=== PATIENT | male | born 1945 | race Hispanic/Latino ===

== ENCOUNTER 2024-11-15 08:14 | Emergency (ER) | payer MEDICARE, BC, SELFPAY ==
[2024-11-15 08:15] VITALS: BP 205/97; PULSE 75; RESP 16; TEMP 36.1; O2SAT 99; BMI 28.0
--- NOTE | 2024-11-15 08:38 | EX.ED.GUMALE ---
HPI History of Present Illness Chief Complaint: Complaint Narrative Narrative: Patient is a 79-year-old male presenting to the emergency department for lower abdominal pain, dysuria and urinary frequency. Patient has a past medical history of bladder cancer in remission for the past 3 years, HTN and diverticulitis. He sees Dr. Ocasio. States that on Sunday he started to have burning with urination and some lower abdominal discomfort. States that he saw his primary care doctor who reportedly tested his urine and told him he did not have a urinary tract infection. States his symptoms improved that evening. He then again had symptoms on and this morning. He denies fever, chills, nausea, vomiting, chest pain, shortness of breath. Denies any constipation or diarrhea. Denies any hematuria. Denies any scrotal swelling or pain. No penial discharge or pain. No concern for STDs. [facility] Medical History Hypertension Bladder cancer Diverticulitis Allergy/AdvReac Type Severity Reaction Status Date / Time No Known Allergies Allergy Verified 11/15/24 08:15 Social History Smoking Status: Former smoker EXAM Physical Exam Narrative Exam Narrative: Vital signs: Reviewed General: Alert and orientedx3. No acute distress HEENT: Head is normocephalic and atraumatic, sinuses nontender, pupils equal round and reactive. Nares are patent. Oropharynx and throat exams normal. Neck: Supple without lymphadenopathy nontender Cardiovascular: Regular rate and rhythm, no murmurs. No rubs or gallops. Normal S1 and S2 Respiratory: Clear to auscultation bilaterally. No wheezes, rales, rhonchi Abdominal: Soft and mildly tender to palpation in the right lower quadrant, suprapubic and left lower quadrants. Normal bowel sounds. No guarding or rebound. Extremities: No tenderness. No bruising. Normal range of motion. Normal sensation. Skin: No rash or redness. Neurological: Cranial nerves II through XII are grossly intact. Normal strength and sensation. Normal cerebellar function The rest of the physical exam is unremarkable Const Vital Signs: 11/15/24 08:15 11/15/24 09:45 11/15/24 10:17 Temperature 97 F L 97 F L Temperature Source Temporal Pulse Rate 75 58 L 58 L Respiratory Rate 16 14 14 Blood Pressure 205/97 H 149/57 H 149/57 H Blood Pressure Mean 133 87 87 Pulse Ox 99 98 98 Oxygen Delivery Method Room Air Room Air MDM MDM MDM Narrative Medical decision making narrative: Patient is a 79-year-old male presenting to the emergency department for lower abdominal pain, dysuria and urinary frequency. Patient was seen and examined. Patient arrives hypertensive at 205/97. All other vitals are normal and stable. Patient states that he did take his blood pressure medications this morning as prescribed. He states that his blood pressure does run high and when he comes to the hospital his blood pressure goes up. Differential includes but is not limited to: Diverticulitis, colitis, UTI, less likely appendicitis Given the patient's lower abdominal pain in all quadrants and history of diverticulitis will obtain a CT of the abdomen and pelvis. Also obtain labs and urinalysis. CBC with no leukocytosis and a normal hemoglobin. CMP with no significant abnormalities. Urinalysis with no evidence of urinary tract infection. CT shows no obvious acute process in the abdomen or pelvis. Radiopaque density in small-bowel is presumably medication related. Postsurgical changes as described above. Patient was updated on the negative labs and imaging. I recommended that he follow-up with his urologist as soon as possible and if he develops any new or worsening symptoms he should return to the emergency department. Patient discharged from the Emergency Department. I do not feel that the patient's evaluation reveals any acute reason for admission at this time. I instructed them to either follow-up with their primary care physician or promptly return to the Emergency Department for reevaluation should symptoms worsen or new symptoms develop. I explained what symptoms would indicate the need to return to the emergency department. Shared decision making was used. The patient voiced understanding of the treatment plan and is agreeable with it. Clinical impression Abdominal pain Dysuria Urinary frequency History & Record Review Discussion w/independent historian: Patient Lab Data Attestation: I reviewed the patient's lab results. Labs: Laboratory Results - last 24 hr 11/15/24 11/15/24 08:20 08:45 WBC 5.2 RBC 4.26 L Hgb 13.8 Hct 39.1 L MCV 91.8 MCH 32.4 H MCHC 35.3 RDW Std Deviation 42.2 RDW Coeff of Jessy 12.7 Plt Count 183 MPV 10.5 Immature Gran % (Auto) 0.800 Neut % (Auto) 46.8 L Lymph % (Auto) 35.6 Tyrrell % (Auto) 13.3 H Eos % (Auto) 2.7 Baso % (Auto) 0.8 Absolute Neuts (auto) 2.4 Absolute Lymphs (auto) 1.85 Nucleated RBC % 0 Sodium 138 Potassium 3.4 Chloride 100 Carbon Dioxide 28.5 Anion Gap 10 BUN 14 Creatinine 1.01 Estim Creat Clear Calc 58.50 Est GFR (MDRD) Non-Af 76 BUN/Creatinine Ratio 14.2 Glucose 109 H Calcium 9.3 Total Bilirubin 1.16 AST 19 ALT 13 Alkaline Phosphatase 60 Total Protein 7.1 Albumin 4.4 Globulin 2.8 Albumin/Globulin Ratio 1.6 Urine Color Straw Urine Clarity Clear Urine pH 7.0 Ur Specific Empire 1.005 Urine Protein Negative Urine Glucose (UA) Normal Urine Ketones Negative Urine Occult Blood Negative Urine Nitrite Negative Urine Bilirubin Negative Urine Urobilinogen Normal Ur Leukocyte Esterase Negative Urine RBC 0 SEEN Urine WBC 0 SEEN Ur Squamous Epith Cells 0 SEEN Urine Bacteria 0 SEEN Urine Mucus 0 SEEN Radiography Diagnostic Testing: Clinical Impression(s) from Imaging Studies Abdomen/Pelvis CT 11/15/24 09:10 IMPRESSION: 1. No obvious acute process in the abdomen or pelvis. 2. Radiopaque density in small-bowel is presumably medication related. 3. Postsurgical changes as described above. Reading Location: [facility] Discharge Plan Triage Chief Complaint: Complaint ED Provider: Maya Fernandez Dx/Rx/DC Orders Clinical Impression: Abdominal pain, Dysuria Instructions: ED Abdominal Pain Unkn Cause Male... Primary Care Provider: Lashay Vela NP Referrals: Missael Ocasio MD [Med Staff - Active Staff, Urology] - As soon as possible Care Physician,No Primary [Non-Staff, Medical] Activity Restrictions/Additional Instructions: Your evaluation in the Emergency Department did not reveal any acute reason for admission. However, I want to emphasize that you may be early in the course of a disease process or illness even if it is not present. For this reason you should follow-up within 24 hours for reevaluation with either your primary care physician or if necessary back here in the Emergency Department. You should return to the Emergency Department immediately if your symptoms worsen or new symptoms develop. Print Language: Hong [place]er Disposition Disposition: Home, Self Care Discharge Date/Time: 11/15/24 10:21
[2024-11-15 08:48] LABS: Mucous, Urine 0 SEEN /hpf (<or=2+); Red Blood Cells-Urine 0 SEEN /hpf (0-5); Squamous Epithelial Cells - UA 0 SEEN /hpf (0-5)
[2024-11-15 08:49] LABS: Color, Urine Straw (Yellow); Glucose, Dipstick Normal (Normal); Ketone-Dipstick Negative (Negative); Leukocyte Esterase-Dipstick Negative /ul (Negative); Nitrite-Dipstick Negative (Negative); Occult Blood-Urine Negative /ul (Negative); Protein-Dipstick Negative (Negative); Specific Gravity, Urine 1.005 (1.002-1.030); Urine Bilirubin Dipstick Negative (Negative)
[2024-11-15 08:58] LABS: Hematocrit 39.1 % (40-54); Hemoglobin 13.8 g/dL (13.0-16.5); Immature Granulocytes Count 0.040 X10^3/uL (0.0-0.0); Mean Corp Hgb Conc 35.3 g/dL (32-36); Mean Corpuscular Volume 91.8 fL (80-94); Mean Platelet Vol. 10.5 fl (6.2-12.0); NRBC Flagged by Analyzer 0 % (0-5); Platelet Count 183 K/mm3 (150-450); RBC Distribution Width CV 12.7 % (11.6-14.6); RBC Distribution Width SD 42.2 fl (35.1-43.9); Red Blood Count 4.26 M/mm3 (4.6-6.2); White Blood Count 5.2 K/mm3 (4.4-11.0)
--- NOTE | 2024-11-15 09:10 | CT_ITS ---
PROCEDURE: ABDOMEN/PELVIS W IV CONT ONLY 11/15/2024 REASON FOR EXAM: LOWER ABDOMINAL PAIN TECHNIQUE: Procedure Code: [id number] Modality: CT Procedure: ABDOMEN/PELVIS W IV CONT ONLY Coronal and Sagittal reconstruction series were provided. CONTRAST: Isovue 300 VOLUME: 98 mL One or more dose reduction techniques were used (e.g., Automated exposure control, adjustment of the mA and/or kV according to patient size, use of iterative reconstruction technique. RADIATION DOSE SUMMARY: CTDlvol: 15.52 mGy DLP: 1287.98 mGycm COMPARISON: None FINDINGS: Lung bases: The lung bases are clear Liver: Normal size. No mass. Gallbladder: Cholecystectomy clips. There is a surgical clip in the hepatorenal fossa. Spleen: Normal Pancreas: Diffuse fatty atrophy. Adrenals: Normal Kidneys: Bilateral subcentimeter hypodensities likely represent cysts. A 2.6 cm cyst is seen at the inferior pole left kidney. There is no hydronephrosis. Mild perinephric stranding appears chronic.. Bladder: Within normal limits. Reproductive Organs: Mild prostatomegaly. Small hydrocele. Bowel: Radiopaque density in small-bowel series 2, image 48, presumably medication related. Sigmoid diverticulosis without CT evidence of diverticulitis. No bowel obstruction. Surgical clip in the anterior mesentery adjacent to sigmoid colon.. Appendix: Not visualized Lymph nodes: No suspicious lymph node enlargement. Vasculature: The abdominal aorta and IVC are normal. Peritoneum / Retroperitoneum: No ascites Bones: Mild degenerative changes in the lumbar spine. CT/Abdomen/Pelvis W IV Cont ONLY IMPRESSION: 1. No obvious acute process in the abdomen or pelvis. 2. Radiopaque density in small-bowel is presumably medication related. 3. Postsurgical changes as described above. Reading Location: [id number]
[2024-11-15 09:35] LABS: AST(SGOT) 19 U/L (<=37); Alanine Aminotransfer ALT/SGPT 13 U/L (<=46); Albumin, Serum 4.4 g/dL (3.4-4.8); Alkaline Phosphatase 60 U/L (40-129); Anion Gap 10 (5-15); BUN 14 mg/dL (4-19); BUN/Creat Ratio 14.2 RATIO (10-20); Calcium,Total 9.3 mg/dL (7.6-11.0); Carbon Dioxide 28.5 mmol/L (21.0-32.0); Chloride 100 mmol/L (98-108); Estimated Creatinine Clearance 58.50 ml/min (50-250); Globulin 2.8 g/dL (2.2-4.2); Glucose 109 mg/dL (70-99); Potassium 3.4 mmol/L (3.3-5.1)
[2024-11-15 09:45] VITALS: BP 149/57; PULSE 58; RESP 14; O2SAT 98
[2024-11-15 10:17] VITALS: BP 149/57; PULSE 58; RESP 14; TEMP 36.1; O2SAT 98
== END 2024-11-15 10:21 | disposition home or self-care (01) ==
PROVIDERS: Emergency Provider Student in an Organized Health Care Education/Training Program; PCP Registered Nurse; Visit Provider Student in an Organized Health Care Education/Training Program
DX: R10.30 Lower abdominal pain, unspecified (principal); R30.0 Dysuria; R35.0 Frequency of micturition; I10 Essential (primary) hypertension; Z87.891 Personal history of nicotine dependence; Z87.19 Personal history of other diseases of the digestive system; Z85.51 Personal history of malignant neoplasm of bladder
CPT/HCPCS: 74177; 80053; 81001; 85025; 99284; Q9967; A4216